=== PATIENT | female | born 1965 | race Caucasian/White ===

== ENCOUNTER 2019-08-04 00:04 | Inpatient (IN) ==
[2019-08-05] MEDS ORDERED: MORPHINE 4 MG/1 ML VIAL IV PRN (03:09)
[2019-08-05] MEDS ORDERED: ONDANSETRON 4 MG/2 ML VIAL IV PRN (03:09)
[2019-08-05] MEDS ORDERED: NICOTINE 21 MG/24 HR PATCH TRANSDERM PRN (03:09)
[2019-08-05] MEDS ORDERED: hydrALAZINE 20 MG/1 ML VIAL IV PRN (03:22)
[2019-08-05 03:32] LABS: Basophils # 0.1 10*3/uL (0.0-0.2); Basophils % 0.6 % (0.0-0.8); Eosinophils # 0.1 10*3/uL (0.0-0.87); Eosinophils % 1.2 % (0.00-10.9); Hematocrit 45.7 VOL% (35.7-47.0); Immature Granulocytes % 0.2 %; Immature Granulocytes Absolute 0.02 #; Lymphocytes # 2.8 10*3/uL (1.4-4.0); Mean Corpuscular HGB Conc 32.8 GM/DL (32-36); Mean Platelet Volume 9.7 FL (9.6-12.0); Monocytes % 7.6 % (1.7-12.7); Neutrophils % 55.4 % (38.7-73.9); Platelet Count 272 T/CUMM (130-400); Red Blood Count 5.08 MC/CUMM (3.8-5.5); Red Cell Distribution Width 12.6 % (9.3-17.3)
[2019-08-05 03:53] LABS: Alanine Aminotransferase 37 U/L (13-56); Albumin 3.6 G/DL (3.4-5.0); Alkaline Phosphatase 82 U/L (45-117); Aspartate Amino Transferase 20 U/L (0-37); Bilirubin,Total < 0.39 MG/DL (0.2-1.0); Blood Urea Nitrogen 10 MG/DL (7-18); Calcium 8.7 MG/DL (8.5-10.1); Estimated Glom Filtration Rate 67 ML/MIN; Glucose 112 MG/DL (74-106); HDL Cholesterol 31 MG/DL (40-60); Osmolality,Calculated 276.5 MOS/KG (273-304); Risk Ratio 8.23; Total Protein 7.4 G/DL (6.4-8.3); Triglycerides 394 MG/DL (2-150); VLDL CHOLESTEROL 78.8 MG/DL
[2019-08-05] MEDS: ACETAMINOPHEN 325 MG TABLET PO PRN (05:40)
[2019-08-05 06:02] LABS: Apearance,Urine CLEAR (Clear); Bilirubin,Urine Negative (Negative); Blood, Urine Negative (Negative); Glucose,Urine (UA) Negative (Negative); Hyaline Casts,Urine 3 /LPF (0-3); Ketones,Urine Negative (Negative); Mucus,Urine Occasional /LPF (Occasional); Nitrite,Urine Negative (Negative); Protein,Urine Negative; RBC,Urine <1 /HPF (0-4); Squamous Epithelial Cell,Urine Occasional /HPF (0-10); Urine Color Yellow (Yellow); Urine Specific Gravity 1.016 (1.001-1.035); Urine Urobilinogen < 2.0 EU/DL (0.2-1.0); WBC,Urine 2 /HPF (0-6)
[2019-08-05] MEDS ORDERED: ASPIRIN EC 81 MG TABLET PO SCH (09:00)
[2019-08-05] MEDS ORDERED: ASPIRIN 325 MG TABLET PO ONE (09:13)
[2019-08-05] MEDS ORDERED: DIAZEPAM 5 MG TABLET PO ONE (09:13)
[2019-08-05] MEDS ORDERED: MAGNESIUM SULF RIDER 2 GM in PREMIX 1 EACH IV PRN (09:13)
[2019-08-05] MEDS ORDERED: POTASSIUM CHLORIDE RIDER 10 MEQ in PREMIX 1 EACH IV PRN (09:13)
[2019-08-05] MEDS ORDERED: diphenhydrAMINE CAP 25 MG CAPSULE PO ONE (09:13)
[2019-08-05] MEDS ORDERED: LIDOCAINE 1% 20 ML VIAL ONE (09:21)
[2019-08-05] MEDS ORDERED: HEPARIN/NACL 0.9% 2 UNITS/ML 1,000 ML IV ONE (09:21)
[2019-08-05 09:26] LABS: Troponin I 0.253 NG/ML (0.00-0.045)
[2019-08-05] MEDS: SODIUM CHLORIDE 0.9% 1,000 ML IV SCH ×2 (09:29→18:11)
[2019-08-05] MEDS: METOPROLOL TARTRATE 25 MG TABLET PO SCH (09:29)
[2019-08-05] MEDS ORDERED: fentaNYL 100 MCG/2 ML VIAL ONE (09:36)
[2019-08-05] MEDS ORDERED: MIDAZOLAM 2 MG/2 ML VIAL ONE ×2 (09:36→10:13)
[2019-08-05] MEDS ORDERED: ACETAMINOPHEN/CODEINE 300-30 MG TABLET PO PRN (11:07)
[2019-08-05] MEDS: ENOXAPARIN 80 MG/0.8 ML SYRINGE SUBCUT SCH (11:26)
[2019-08-05] MEDS: ATORVASTATIN 40 MG TABLET PO SCH (21:30)
[2019-08-06] MEDS: NITROGLYCERIN SL 0.4 MG TABLET SL PRN ×4 (02:45→04:43)
[2019-08-06] MEDS: ACETAMINOPHEN 325 MG TABLET PO PRN ×2 (04:40→17:19)
[2019-08-06] MEDS ORDERED: NITROGLYCERIN DRIP 50 MG/250 ML BOTTLE IV PRN (04:58)
[2019-08-06 05:02] LABS: Basophils % 0.4 % (0.0-0.8); Eosinophils # 0.1 10*3/uL (0.0-0.87); Eosinophils % 0.7 % (0.00-10.9); Hematocrit 45.1 VOL% (35.7-47.0); Hemoglobin 14.9 GM/DL (12.0-16.0); Immature Granulocytes % 0.2 %; Immature Granulocytes Absolute 0.02 #; Mean Corpuscular Volume 89.3 FL (87-102); Mean Platelet Volume 9.8 FL (9.6-12.0); Monocytes % 8.3 % (1.7-12.7); Neutrophils % 68.4 % (38.7-73.9); Platelet Count 253 T/CUMM (130-400); Red Blood Count 5.05 MC/CUMM (3.8-5.5); Red Cell Distribution Width 12.7 % (9.3-17.3)
[2019-08-06 05:30] LABS: Calcium 9.3 MG/DL (8.5-10.1); Osmolality,Calculated 277.5 MOS/KG (273-304)
[2019-08-06] MEDS: METOPROLOL TARTRATE 25 MG TABLET PO SCH ×2 (08:59→20:30)
[2019-08-06] MEDS: PANTOPRAZOLE 40 MG TABLET PO SCH (08:59)
[2019-08-06] MEDS: ASPIRIN 325 MG TABLET PO SCH (08:59)
[2019-08-06] MEDS ORDERED: CLORAZEPATE 3.75 MG TABLET PO PRN (12:53)
[2019-08-06] MEDS: ENOXAPARIN 80 MG/0.8 ML SYRINGE SUBCUT SCH (14:36)
[2019-08-06] MEDS: ATORVASTATIN 40 MG TABLET PO SCH (20:23)
[2019-08-07] MEDS: ENOXAPARIN 80 MG/0.8 ML SYRINGE SUBCUT SCH (01:51)
[2019-08-07 06:12] LABS: Calcium 8.8 MG/DL (8.5-10.1); Osmolality,Calculated 274.7 MOS/KG (273-304)
[2019-08-07] MEDS ORDERED: GLUCAGON 1 MG VIAL IM PRN (09:07)
[2019-08-07] MEDS ORDERED: DEXTROSE 10% 250 ML BAG IV PRN (09:17)
[2019-08-07] MEDS: ASPIRIN 325 MG TABLET PO SCH (09:19)
[2019-08-07] MEDS: METOPROLOL TARTRATE 25 MG TABLET PO SCH ×2 (09:19→20:57)
[2019-08-07] MEDS: PANTOPRAZOLE 40 MG TABLET PO SCH (09:19)
[2019-08-07 10:33] LABS: ABG Base Excess 0.2 MMOL/L (-2.5-2.5); ABG HCO3 24.6 MMOL/L (20-26); ABG Oxygen Saturation 96.5 % (95-100); ABG PCO2 39.3 MM HG (35-48); ABG PH 7.407 (7.35-7.45); ABG PO2 85.2 MM HG (80-95); Allen Test Positive; Pt O2 Delivery Device Room Air
[2019-08-07] MEDS: CHLORHEXIDINE 4% SOLN 118 ML BOTTLE TOP SCH ×2 (17:44→21:31)
[2019-08-07] MEDS: ATORVASTATIN 40 MG TABLET PO SCH (20:57)
[2019-08-07] MEDS: CHLORHEXIDINE 0.12% ORAL RINSE 60 ML BOTTLE SWISH/SPIT SCH (21:50)
[2019-08-08] MEDS ORDERED: VANCOMYCIN 1,000 MG VIAL ONE ×2 (04:23→09:47)
[2019-08-08] MEDS ORDERED: VANCOMYCIN 500 MG VIAL ONE (04:23)
[2019-08-08] MEDS ORDERED: PAPAVERINE 60 MG/2 ML VIAL ONE (04:23)
[2019-08-08 04:30] LABS: Basophils % 0.5 % (0.0-0.8); Eosinophils # 0.2 10*3/uL (0.0-0.87); Hematocrit 46.1 VOL% (35.7-47.0); Hemoglobin 15.2 GM/DL (12.0-16.0); Immature Granulocytes % 0.3 %; Immature Granulocytes Absolute 0.02 #; Lymphocytes # 2.3 10*3/uL (1.4-4.0); Lymphocytes % 29.7 % (21.3-54.2); Mean Corpuscular Volume 89.5 FL (87-102); Mean Platelet Volume 9.9 FL (9.6-12.0); Neutrophils % 57.5 % (38.7-73.9); Platelet Count 249 T/CUMM (130-400); Red Blood Count 5.15 MC/CUMM (3.8-5.5); Red Cell Distribution Width 12.4 % (9.3-17.3); White Blood Count 7.8 T/CUMM (4-12)
[2019-08-08 04:39] LABS: INR 0.9; Partial Thromboplastin Time 25.2 SECS (20.8-36.0)
[2019-08-08 05:03] LABS: Calcium 9.4 MG/DL (8.5-10.1); Osmolality,Calculated 274.8 MOS/KG (273-304)
[2019-08-08] MEDS: CHLORHEXIDINE 4% SOLN 118 ML BOTTLE TOP SCH ×2 (05:19→15:30)
[2019-08-08] MEDS: PANTOPRAZOLE 40 MG TABLET PO SCH ×2 (05:36→15:31)
[2019-08-08] MEDS ORDERED: LORazepam 1 MG TABLET PO ONE (06:00)
[2019-08-08] MEDS ORDERED: MIDAZOLAM 10 MG/2 ML VIAL ONE ×2 (06:00)
[2019-08-08] MEDS ORDERED: CEFUROXIME INJ 1,500 MG in SYRINGE 1 EACH IV ONE (06:00)
[2019-08-08] MEDS ORDERED: ACETAMINOPHEN 500 MG TABLET PO ONE (06:00)
[2019-08-08] MEDS ORDERED: SUFentanil 250 MCG/5 ML AMP ONE (06:00)
[2019-08-08 07:49] LABS: ABG Base Excess 0.4 MMOL/L (-2.5-2.5); ABG HCO3 24.8 MMOL/L (20-26); ABG Oxygen Saturation 99.8 % (95-100); ABG PCO2 37.8 MM HG (35-48); ABG PH 7.421 (7.35-7.45); ABG TCO2 21.3 MMOL/L (23-27); Glucose Heart Surgery 122 MG/DL (74-106); Hematocrit Heart Surgery 41.4 PERCENT (37-47); Hemoglobin Heart Surgery 13.5 G/DL (12.0-16.0); Ionized Calcium Arterial 1.17 MMOL/L (1.21-1.46); PCO2 Patient Temp Arterial 37.8 MMHG; PH Patient Temp Arterial 7.421; Patient Temperature 37 CELCIUS; Sodium Heart/CVR 138 MMOL/L (135-145)
[2019-08-08] MEDS ORDERED: PHENYLEPHRINE DRIP 40 MG/250 ML PREMIX IV ONE (07:56)
[2019-08-08 08:24] LABS: Amorphous Crystals,Urine Few /HPF (Few); Apearance,Urine CLOUDY (Clear); Bilirubin,Urine Negative (Negative); Blood, Urine Negative (Negative); Glucose,Urine (UA) Negative (Negative); Ketones,Urine Negative (Negative); Mucus,Urine Many /LPF (Occasional); Nitrite,Urine Negative (Negative); Protein,Urine Negative; Urine Color Yellow (Yellow); Urine Specific Gravity 1.028 (1.001-1.035); Urine Urobilinogen < 2.0 EU/DL (0.2-1.0)
[2019-08-08 09:34] LABS: Hematocrit Heart Surgery 27.6 PERCENT (37-47); Hemoglobin Heart Surgery 8.9 G/DL (12.0-16.0); PCO2 Patient Temp Venous 32.2 MM HG; PH Patient Temp Venous 7.495; PO2 Patient Temp Venous 34.7 MM HG; Potassium Heart/CVR 5.2 MMOL/L (3.5-5.1); VBG HCO3 25.9 MEQ/L (24-28); VBG Oxygen Saturation 82.3 %; VBG PCO2 37.2 MMHG (41-51); VBG PH 7.45; VBG PO2 42.8 MMHG (17-40)
[2019-08-08] MEDS ORDERED: AMINOCAPROIC ACID 5,000 MG/20 ML VIAL ONE (09:35)
[2019-08-08] MEDS ORDERED: HEPARIN/NACL 0.9% 2 UNITS/ML 500 ML IV ONE (09:35)
[2019-08-08] MEDS ORDERED: PHENYLEPHRINE DRIP 20 MG/250 ML PREMIX IV ONE (09:35)
[2019-08-08] MEDS ORDERED: NITROGLYCERIN DRIP 50 MG/250 ML BOTTLE IV ONE (09:35)
[2019-08-08 10:04] LABS: Hematocrit Heart Surgery 30.9 PERCENT (37-47); PCO2 Patient Temp Venous 32.9 MM HG; PH Patient Temp Venous 7.483; PO2 Patient Temp Venous 36.9 MM HG; Potassium Heart/CVR 5.6 MMOL/L (3.5-5.1); VBG Base Excess 1.7 MEQ/L (0-4); VBG HCO3 25.7 MEQ/L (24-28); VBG Oxygen Saturation 85.6 %; VBG PH 7.424; VBG PO2 48.6 MMHG (17-40)
[2019-08-08 10:35] LABS: Hematocrit Heart Surgery 30.9 PERCENT (37-47); PCO2 Patient Temp Venous 34.8 MM HG; PH Patient Temp Venous 7.447; PO2 Patient Temp Venous 37.1 MM HG; Potassium Heart/CVR 5.5 MMOL/L (3.5-5.1); VBG Base Excess 0.4 MEQ/L (0-4); VBG HCO3 24.6 MEQ/L (24-28); VBG Oxygen Saturation 84.5 %; VBG PCO2 42.2 MMHG (41-51); VBG PH 7.389; VBG PO2 48.8 MMHG (17-40)
[2019-08-08 11:04] LABS: Hematocrit Heart Surgery 30.4 PERCENT (37-47); Hemoglobin Heart Surgery 9.8 G/DL (12.0-16.0); PCO2 Patient Temp Venous 38.5 MM HG; PH Patient Temp Venous 7.428; PO2 Patient Temp Venous 40.8 MM HG; Potassium Heart/CVR 4.9 MMOL/L (3.5-5.1); VBG Base Excess 1.2 MEQ/L (0-4); VBG HCO3 25.2 MEQ/L (24-28); VBG Oxygen Saturation 78.4 %; VBG PCO2 38.5 MMHG (41-51); VBG PH 7.428; VBG PO2 40.8 MMHG (17-40)
[2019-08-08] MEDS ORDERED: THROMBIN TOPICAL (RECOMBINANT) 5,000 UNIT VIAL TOP ONE (11:33)
[2019-08-08 11:56] LABS: ABG Base Excess -1.1 MMOL/L (-2.5-2.5); ABG HCO3 23.5 MMOL/L (20-26); ABG Oxygen Saturation 99.6 % (95-100); ABG PCO2 37.1 MM HG (35-48); ABG PH 7.406 (7.35-7.45); ABG TCO2 21.2 MMOL/L (23-27); Glucose Heart Surgery 193 MG/DL (74-106); Ionized Calcium Arterial 1.17 MMOL/L (1.21-1.46); PCO2 Patient Temp Arterial 37.1 MMHG; PH Patient Temp Arterial 7.406; Patient Temperature 37 CELCIUS; Potassium Heart/CVR 3.5 MMOL/L (3.5-5.1); Sodium Heart/CVR 137 MMOL/L (135-145)
[2019-08-08] MEDS ORDERED: MANNITOL 100 GM/500 ML BAG IV ONE (12:01)
[2019-08-08] MEDS ORDERED: ALBUMIN 25% 25 GM/100 ML VIAL IV ONE (12:02)
[2019-08-08] MEDS ORDERED: DEXTROSE 5% KCL 20 MEQ 20 MEQ/1,000 ML BAG IV ONE (12:02)
[2019-08-08] MEDS ORDERED: FUROSEMIDE 20 MG/2 ML VIAL ONE (12:02)
[2019-08-08] MEDS ORDERED: HEPARIN 10,000 UNIT/10 ML VIAL ONE (12:02)
[2019-08-08] MEDS ORDERED: MAGNESIUM SULFATE 5 GM/10 ML VIAL IV ONE (12:02)
[2019-08-08] MEDS ORDERED: LIDOCAINE 2% 5 ML VIAL ONE (12:02)
[2019-08-08] MEDS ORDERED: SODIUM BICARBONATE 50 MEQ/50 ML VIAL IV ONE (12:02)
[2019-08-08] MEDS ORDERED: methylPREDNISolone SOD SUC 1,000 MG/8 ML VIAL ONE (12:02)
[2019-08-08] MEDS ORDERED: ALBUMIN 5% 12.5 GM/250 ML VIAL IV ONE (12:02)
[2019-08-08] MEDS ORDERED: PROTAMINE SULFATE 250 MG/25 ML VIAL IV ONE (12:02)
[2019-08-08] MEDS ORDERED: PROTAMINE SULFATE 50 MG/5 ML VIAL IV ONE ×2 (12:03→17:25)
[2019-08-08] MEDS ORDERED: LACTATED RINGERS 250 ML IV PRN (12:56)
[2019-08-08] MEDS ORDERED: MIDAZOLAM 10 MG/2 ML VIAL IV PRN (12:56)
[2019-08-08] MEDS ORDERED: NITROPRUSSIDE 100 MG in DEXTROSE 5% 250 ML IV PRN (12:56)
[2019-08-08] MEDS ORDERED: CALCIUM CHLORIDE 1,000 MG/10 ML SYRINGE IV PRN (12:56)
[2019-08-08] MEDS ORDERED: VECURONIUM 10 MG VIAL IV PRN ×2 (12:56)
[2019-08-08] MEDS ORDERED: MORPHINE 10 MG/1 ML VIAL IV PRN (12:56)
[2019-08-08] MEDS ORDERED: ACETAMINOPHEN 650 MG SUPP RECTAL PRN (12:56)
[2019-08-08] MEDS ORDERED: ONDANSETRON 4 MG/2 ML VIAL IV PRN (12:56)
[2019-08-08] MEDS ORDERED: PHENYLEPHRINE DRIP 40 MG/250 ML PREMIX IV PRN (12:56)
[2019-08-08] MEDS ORDERED: CHLORHEXIDINE 4% SOLN 118 ML BOTTLE TOP PRN (12:56)
[2019-08-08] MEDS ORDERED: DEXTROSE 10% 250 ML BAG IV PRN ×2 (12:56)
[2019-08-08] MEDS ORDERED: MAGNESIUM SULF RIDER 2 GM in PREMIX 1 EACH IV PRN (12:56)
[2019-08-08] MEDS ORDERED: INSULIN REGULAR 100 UNIT/ML IV ONE (12:56)
[2019-08-08] MEDS ORDERED: INSULIN REGULAR 100 UNIT/ML IV PRN (12:56)
[2019-08-08] MEDS ORDERED: MAGNESIUM SULF RIDER 4 GM in PREMIX 1 EACH IV PRN (12:56)
[2019-08-08] MEDS ORDERED: INSULIN REGULAR DRIP 100 ML IV SCH (13:00)
[2019-08-08] MEDS ORDERED: SODIUM CHLORIDE 0.45% 1,000 ML IV SCH ×2 (13:00)
[2019-08-08 13:23] LABS: ABG Base Excess -0.2 MMOL/L (-2.5-2.5); ABG HCO3 24.3 MMOL/L (20-26); ABG Oxygen Saturation 98.3 % (95-100); ABG PCO2 46.9 MM HG (35-48); ABG PH 7.347 (7.35-7.45); ABG TCO2 23.8 MMOL/L (23-27); Glucose Heart Surgery 178 MG/DL (74-106); Hematocrit Heart Surgery 27.5 PERCENT (37-47); Hemoglobin Heart Surgery 8.9 G/DL (12.0-16.0); Potassium Heart/CVR 3.6 MMOL/L (3.5-5.1)
[2019-08-08 13:30] LABS: Basophils % 0.2 % (0.0-0.8); Eosinophils # 0.1 10*3/uL (0.0-0.87); Eosinophils % 0.5 % (0.00-10.9); Hematocrit 26.3 VOL% (35.7-47.0); Hemoglobin 8.8 GM/DL (12.0-16.0); Immature Granulocytes % 0.4 %; Immature Granulocytes Absolute 0.04 #; Lymphocytes # 0.9 10*3/uL (1.4-4.0); Lymphocytes % 9.4 % (21.3-54.2); Mean Corpuscular HGB Conc 33.5 GM/DL (32-36); Mean Corpuscular Volume 88.9 FL (87-102); Mean Platelet Volume 10.3 FL (9.6-12.0); Monocytes % 6.5 % (1.7-12.7); Platelet Count 230 T/CUMM (130-400); Red Blood Count 2.96 MC/CUMM (3.8-5.5); Red Cell Distribution Width 12.5 % (9.3-17.3); White Blood Count 9.4 T/CUMM (4-12)
[2019-08-08 13:36] LABS: INR 1.1; PT Patient Result 11.6 SECS (9.6-12.2); Partial Thromboplastin Time 24.3 SECS (20.8-36.0)
[2019-08-08] MEDS: POTASSIUM CHLORIDE RIDER 20 MEQ in PREMIX 1 EACH IV PRN (13:42)
[2019-08-08 13:43] LABS: Albumin 3.2 G/DL (3.4-5.0); Bilirubin,Total 0.7 MG/DL (0.2-1.0); Calcium 7.9 MG/DL (8.5-10.1); Osmolality,Calculated 287.1 MOS/KG (273-304); Total Protein 6.1 G/DL (6.4-8.3)
[2019-08-08 13:44] LABS: CKMB % 7.4 %
[2019-08-08 13:46] LABS: Troponin I 3.31 NG/ML (0.00-0.045)
[2019-08-08] MEDS: LACTATED RINGERS 1,000 ML IV PRN ×2 (14:00→15:30)
[2019-08-08] MEDS: POTASSIUM CHLORIDE RIDER 10 MEQ in PREMIX 1 EACH IV PRN (14:15)
[2019-08-08] MEDS: MIDAZOLAM 2 MG/2 ML VIAL IV PRN ×2 (14:40→16:15)
[2019-08-08 15:05] LABS: ABG Base Excess -0.7 MMOL/L (-2.5-2.5); ABG HCO3 23.8 MMOL/L (20-26); ABG Oxygen Saturation 98.3 % (95-100); ABG PH 7.303 (7.35-7.45); ABG TCO2 24.2 MMOL/L (23-27); Glucose Heart Surgery 178 MG/DL (74-106); Hematocrit Heart Surgery 29.7 PERCENT (37-47); Hemoglobin Heart Surgery 9.6 G/DL (12.0-16.0); Potassium Heart/CVR 4.6 MMOL/L (3.5-5.1)
[2019-08-08] MEDS: ASPIRIN 325 MG TABLET PO SCH (15:30)
[2019-08-08] MEDS: METOPROLOL TARTRATE 25 MG TABLET PO SCH (15:30)
[2019-08-08] MEDS: CHLORHEXIDINE 0.12% ORAL RINSE 60 ML BOTTLE SWISH/SPIT SCH ×2 (15:30→22:19)
[2019-08-08 16:11] LABS: ABG Base Excess 0.2 MMOL/L (-2.5-2.5); ABG HCO3 24.7 MMOL/L (20-26); ABG PCO2 41.9 MM HG (35-48); ABG PH 7.389 (7.35-7.45); ABG TCO2 22.7 MMOL/L (23-27); Glucose Heart Surgery 178 MG/DL (74-106); Hematocrit Heart Surgery 34.5 PERCENT (37-47); Hemoglobin Heart Surgery 11.2 G/DL (12.0-16.0); Potassium Heart/CVR 4.4 MMOL/L (3.5-5.1)
[2019-08-08] MEDS: ALBUMIN 5% 12.5 GM in PREMIX 1 EACH IV PRN ×3 (16:23→22:19)
[2019-08-08] MEDS ORDERED: SODIUM CHLORIDE 0.9% 1,000 ML IV PRN (16:43)
[2019-08-08] MEDS ORDERED: METOPROLOL TARTRATE 25 MG TABLET PO ONE (16:45)
[2019-08-08] MEDS ORDERED: MIDAZOLAM 2 MG/2 ML VIAL IV ONE (16:57)
[2019-08-08 17:45] LABS: ABG Base Excess -0.9 MMOL/L (-2.5-2.5); ABG HCO3 23.6 MMOL/L (20-26); ABG Oxygen Saturation 98.7 % (95-100); ABG PH 7.385 (7.35-7.45); ABG TCO2 21.9 MMOL/L (23-27); Glucose Heart Surgery 159 MG/DL (74-106); Hematocrit Heart Surgery 30.2 PERCENT (37-47); Hemoglobin Heart Surgery 9.7 G/DL (12.0-16.0)
[2019-08-08] MEDS: SODIUM CHLORIDE 0.9% 1,000 ML IV SCH (19:15)
[2019-08-08] MEDS ORDERED: FUROSEMIDE 40 MG/4 ML VIAL IV ONE (21:07)
[2019-08-08 21:08] LABS: ABG Base Excess -1.6 MMOL/L (-2.5-2.5); ABG HCO3 23.3 MMOL/L (20-26); ABG PH 7.383 (7.35-7.45); ABG PO2 86.6 MM HG (80-95); ABG TCO2 24.5 MMOL/L (23-27); Glucose Heart Surgery 143 MG/DL (74-106); Hemoglobin Heart Surgery 11.1 G/DL (12.0-16.0); Potassium Heart/CVR 4.1 MMOL/L (3.5-5.1)
[2019-08-08 22:03] LABS: ABG Base Excess 1.1 MMOL/L (-2.5-2.5); ABG HCO3 25.3 MMOL/L (20-26); ABG Oxygen Saturation 96.8 % (95-100); ABG PCO2 41.2 MM HG (35-48); ABG PH 7.406 (7.35-7.45); ABG PO2 86.9 MM HG (80-95); ABG TCO2 22.8 MMOL/L (23-27); Glucose Heart Surgery 163 MG/DL (74-106); Hematocrit Heart Surgery 37.7 PERCENT (37-47); Hemoglobin Heart Surgery 12.2 G/DL (12.0-16.0)
[2019-08-08] MEDS: CEFUROXIME INJ 1,500 MG in SYRINGE 1 EACH IV SCH (22:22)
[2019-08-08 22:52] LABS: CKMB % 5.6 %
[2019-08-08 22:53] LABS: Troponin I 3.6 NG/ML (0.00-0.045)
[2019-08-09 00:31] LABS: ABG Base Excess 0.5 MMOL/L (-2.5-2.5); ABG HCO3 24.8 MMOL/L (20-26); ABG Oxygen Saturation 94.7 % (95-100); ABG PCO2 38.7 MM HG (35-48); ABG PH 7.425 (7.35-7.45); ABG PO2 73.9 MM HG (80-95); Glucose Heart Surgery 137 MG/DL (74-106); Hemoglobin Heart Surgery 10.8 G/DL (12.0-16.0); Potassium Heart/CVR 3.7 MMOL/L (3.5-5.1)
[2019-08-09] MEDS: LEVALBUTEROL 1.25 MG/3 ML NEB RESP TX SCH ×6 (01:39→20:05)
[2019-08-09 02:00] LABS: ABG Base Excess 1.2 MMOL/L (-2.5-2.5); ABG HCO3 25.5 MMOL/L (20-26); ABG Oxygen Saturation 97.6 % (95-100); ABG PCO2 37.9 MM HG (35-48); ABG PH 7.433 (7.35-7.45); ABG TCO2 22.9 MMOL/L (23-27); Glucose Heart Surgery 149 MG/DL (74-106); Hematocrit Heart Surgery 32.4 PERCENT (37-47); Hemoglobin Heart Surgery 10.5 G/DL (12.0-16.0); Potassium Heart/CVR 3.7 MMOL/L (3.5-5.1)
[2019-08-09] MEDS: ALBUMIN 5% 12.5 GM in PREMIX 1 EACH IV PRN (02:19)
[2019-08-09] MEDS ORDERED: FUROSEMIDE 40 MG/4 ML VIAL IV ONE (02:43)
[2019-08-09] MEDS: MORPHINE 4 MG/1 ML VIAL IV PRN ×2 (02:43→05:02)
[2019-08-09 04:03] LABS: ABG Base Excess 1.2 MMOL/L (-2.5-2.5); ABG HCO3 25.4 MMOL/L (20-26); ABG Oxygen Saturation 96.9 % (95-100); ABG PCO2 38.7 MM HG (35-48); ABG PH 7.435 (7.35-7.45); ABG PO2 94.7 MM HG (80-95); ABG TCO2 26.6 MMOL/L (23-27); Glucose Heart Surgery 147 MG/DL (74-106); Potassium Heart/CVR 3.6 MMOL/L (3.5-5.1)
[2019-08-09] MEDS: POTASSIUM CHLORIDE RIDER 20 MEQ in PREMIX 1 EACH IV PRN ×2 (04:11→06:33)
[2019-08-09 04:40] LABS: CKMB % 5.4 %
[2019-08-09 04:44] LABS: Hematocrit 31.1 VOL% (35.7-47.0); Immature Granulocytes % 0.3 %; Immature Granulocytes Absolute 0.02 #; Lymphocytes # 0.5 10*3/uL (1.4-4.0); Lymphocytes % 6.6 % (21.3-54.2); Mean Corpuscular HGB Conc 34.1 GM/DL (32-36); Mean Corpuscular Volume 90.1 FL (87-102); Mean Platelet Volume 10.8 FL (9.6-12.0); Monocytes % 6.4 % (1.7-12.7); Neutrophils % 86.7 % (38.7-73.9); Platelet Count 192 T/CUMM (130-400); Red Blood Count 3.45 MC/CUMM (3.8-5.5); Red Cell Distribution Width 13.5 % (9.3-17.3); White Blood Count 7.8 T/CUMM (4-12)
[2019-08-09] MEDS: POTASSIUM CHLORIDE RIDER 10 MEQ in PREMIX 1 EACH IV PRN (04:46)
[2019-08-09 04:47] LABS: Hemoglobin 10.6 GM/DL (12.0-16.0)
[2019-08-09 04:54] LABS: Troponin I 6.54 NG/ML (0.00-0.045)
[2019-08-09 05:03] LABS: Albumin 4.3 G/DL (3.4-5.0); Bilirubin,Direct 0.23 MG/DL (0.0-0.20); Bilirubin,Total 0.9 MG/DL (0.2-1.0); Calcium 8.1 MG/DL (8.5-10.1); Osmolality,Calculated 288.8 MOS/KG (273-304); Total Protein 7.1 G/DL (6.4-8.3)
[2019-08-09 05:29] LABS: ABG Base Excess 1.7 MMOL/L (-2.5-2.5); ABG HCO3 25.9 MMOL/L (20-26); ABG Oxygen Saturation 97.4 % (95-100); ABG PH 7.416 (7.35-7.45); ABG PO2 89.9 MM HG (80-95); ABG TCO2 23.7 MMOL/L (23-27); Glucose Heart Surgery 161 MG/DL (74-106); Hematocrit Heart Surgery 32.7 PERCENT (37-47); Hemoglobin Heart Surgery 10.6 G/DL (12.0-16.0)
[2019-08-09 06:28] LABS: ABG Base Excess 1.7 MMOL/L (-2.5-2.5); ABG HCO3 25.8 MMOL/L (20-26); ABG Oxygen Saturation 95.5 % (95-100); ABG PCO2 39.4 MM HG (35-48); ABG PH 7.427 (7.35-7.45); ABG PO2 73.1 MM HG (80-95); ABG TCO2 23.5 MMOL/L (23-27); Glucose Heart Surgery 156 MG/DL (74-106); Hematocrit Heart Surgery 32.3 PERCENT (37-47); Hemoglobin Heart Surgery 10.5 G/DL (12.0-16.0); Potassium Heart/CVR 3.7 MMOL/L (3.5-5.1)
[2019-08-09] MEDS ORDERED: KETOROLAC 30 MG/1 ML VIAL IV PRN (08:18)
[2019-08-09] MEDS ORDERED: NICOTINE 21 MG/24 HR PATCH TRANSDERM PRN (09:08)
[2019-08-09] MEDS ORDERED: CLORAZEPATE 3.75 MG TABLET PO PRN (09:08)
[2019-08-09] MEDS ORDERED: MAGNESIUM SULF RIDER 2 GM in PREMIX 1 EACH IV PRN (09:48)
[2019-08-09] MEDS ORDERED: ZALEPLON 5 MG CAPSULE PO PRN (09:48)
[2019-08-09] MEDS ORDERED: SODIUM CHLOR 0.45% KCL 20 MEQ 20 MEQ/1,000 ML BAG IV SCH (09:48)
[2019-08-09] MEDS ORDERED: DEXTROSE 10% 250 ML BAG IV PRN (09:48)
[2019-08-09] MEDS ORDERED: DEXTROSE 50% 25 GM/50 ML VIAL IV PRN (09:48)
[2019-08-09] MEDS ORDERED: ALUMINUM/MAGNES/SIMETH MAX STR 30 ML UDCUP PO PRN (09:48)
[2019-08-09] MEDS ORDERED: MAGNESIUM HYDROXIDE SUSP 30 ML UDCUP PO PRN (09:48)
[2019-08-09] MEDS ORDERED: ONDANSETRON 4 MG/2 ML VIAL IV PRN (09:48)
[2019-08-09] MEDS ORDERED: MAGNESIUM SULF RIDER 4 GM in PREMIX 1 EACH IV PRN (09:48)
[2019-08-09] MEDS ORDERED: GLUCAGON 1 MG VIAL IM PRN ×2 (09:48)
[2019-08-09 10:07] LABS: ABG Base Excess 2.3 MMOL/L (-2.5-2.5); ABG HCO3 26.4 MMOL/L (20-26); ABG Oxygen Saturation 94.9 % (95-100); ABG PH 7.425 (7.35-7.45); ABG PO2 72.1 MM HG (80-95); ABG TCO2 24.3 MMOL/L (23-27); Glucose Heart Surgery 151 MG/DL (74-106); Hematocrit Heart Surgery 31.9 PERCENT (37-47); Hemoglobin Heart Surgery 10.3 G/DL (12.0-16.0)
[2019-08-09] MEDS: CHLORHEXIDINE 0.12% ORAL RINSE 60 ML BOTTLE SWISH/SPIT SCH ×2 (10:24→21:37)
[2019-08-09] MEDS: CEFUROXIME INJ 1,500 MG in SYRINGE 1 EACH IV SCH ×2 (10:32→21:37)
[2019-08-09] MEDS: ASCORBIC ACID 500 MG TABLET PO SCH ×2 (10:32→21:33)
[2019-08-09] MEDS: KETOROLAC 30 MG/1 ML VIAL IV SCH ×2 (10:33→16:44)
[2019-08-09] MEDS: oxyCODONE/ACETAMINOPHEN 5-325 MG TABLET PO PRN ×2 (12:49→21:33)
[2019-08-09] MEDS: ATORVASTATIN 40 MG TABLET PO SCH (21:33)
[2019-08-09] MEDS: METOPROLOL TARTRATE 25 MG TABLET PO SCH (21:35)
[2019-08-10] MEDS: KETOROLAC 30 MG/1 ML VIAL IV SCH ×5 (00:07→21:26)
[2019-08-10] MEDS: LEVALBUTEROL 1.25 MG/3 ML NEB RESP TX SCH ×6 (01:21→19:00)
[2019-08-10 05:23] LABS: Basophils % 0.1 % (0.0-0.8); Hematocrit 29.7 VOL% (35.7-47.0); Hemoglobin 9.8 GM/DL (12.0-16.0); Immature Granulocytes % 1.1 %; Immature Granulocytes Absolute 0.12 #; Lymphocytes # 1.5 10*3/uL (1.4-4.0); Lymphocytes % 13.4 % (21.3-54.2); Mean Corpuscular Volume 93.4 FL (87-102); Mean Platelet Volume 11.1 FL (9.6-12.0); Monocytes % 8.1 % (1.7-12.7); Neutrophils % 77.3 % (38.7-73.9); Platelet Count 162 T/CUMM (130-400); Red Blood Count 3.18 MC/CUMM (3.8-5.5); Red Cell Distribution Width 14.4 % (9.3-17.3); White Blood Count 11.4 T/CUMM (4-12)
[2019-08-10] MEDS ORDERED: FUROSEMIDE 40 MG/4 ML VIAL IV ONE (06:00)
[2019-08-10 06:03] LABS: Albumin 3.6 G/DL (3.4-5.0); Bilirubin,Direct 0.15 MG/DL (0.0-0.20); Bilirubin,Indirect 0.6 MG/DL (0.0-1.0); Bilirubin,Total 0.7 MG/DL (0.2-1.0); CKMB % 1.7 %; Calcium 8.6 MG/DL (8.5-10.1); Total Protein 6.8 G/DL (6.4-8.3)
[2019-08-10 06:07] LABS: Troponin I 4.3 NG/ML (0.00-0.045)
[2019-08-10] MEDS: METOPROLOL TARTRATE 25 MG TABLET PO SCH ×2 (10:15→23:25)
[2019-08-10] MEDS: DOCUSATE SODIUM 100 MG CAPSULE PO SCH (10:15)
[2019-08-10] MEDS: POTASSIUM CHLORIDE 20 MEQ TABLET PO PRN ×2 (10:15→12:02)
[2019-08-10] MEDS: ASPIRIN EC 81 MG TABLET PO SCH (10:15)
[2019-08-10] MEDS: PANTOPRAZOLE 40 MG TABLET PO SCH (10:16)
[2019-08-10] MEDS: ASCORBIC ACID 500 MG TABLET PO SCH ×2 (10:16→21:26)
[2019-08-10] MEDS: FERROUS SULFATE 325 MG TABLET PO SCH (10:17)
[2019-08-10] MEDS: CHLORHEXIDINE 0.12% ORAL RINSE 60 ML BOTTLE SWISH/SPIT SCH ×2 (10:17→23:25)
[2019-08-10] MEDS: oxyCODONE/ACETAMINOPHEN 5-325 MG TABLET PO PRN (12:02)
[2019-08-10] MEDS: ATORVASTATIN 40 MG TABLET PO SCH (21:26)
[2019-08-11] MEDS: LEVALBUTEROL 1.25 MG/3 ML NEB RESP TX SCH ×7 (00:45→23:44)
[2019-08-11] MEDS: KETOROLAC 30 MG/1 ML VIAL IV SCH ×4 (04:23→21:45)
[2019-08-11 05:13] LABS: Basophils % 0.3 % (0.0-0.8); Eosinophils # 0.1 10*3/uL (0.0-0.87); Eosinophils % 0.5 % (0.00-10.9); Hematocrit 29.9 VOL% (35.7-47.0); Hemoglobin 9.5 GM/DL (12.0-16.0); Immature Granulocytes % 0.9 %; Immature Granulocytes Absolute 0.09 #; Lymphocytes # 2.2 10*3/uL (1.4-4.0); Lymphocytes % 22.1 % (21.3-54.2); Mean Corpuscular HGB Conc 31.8 GM/DL (32-36); Mean Corpuscular Volume 95.8 FL (87-102); Mean Platelet Volume 11.1 FL (9.6-12.0); Monocytes % 8.5 % (1.7-12.7); NRBC # 0.02 10*3/uL; Neutrophils % 67.7 % (38.7-73.9); Platelet Count 161 T/CUMM (130-400); Red Blood Count 3.12 MC/CUMM (3.8-5.5); Red Cell Distribution Width 14.6 % (9.3-17.3); White Blood Count 9.8 T/CUMM (4-12)
[2019-08-11 05:53] LABS: Alanine Aminotransferase 63 U/L (13-56); Albumin 3.5 G/DL (3.4-5.0); Alkaline Phosphatase 55 U/L (45-117); Aspartate Amino Transferase 50 U/L (0-37); Bilirubin,Indirect 1.3 MG/DL (0.0-1.0); Blood Urea Nitrogen 24 MG/DL (7-18); Calcium 8.6 MG/DL (8.5-10.1); Estimated Glom Filtration Rate 78 ML/MIN; Glucose 114 MG/DL (74-106); Osmolality,Calculated 290.8 MOS/KG (273-304); Total Protein 6.7 G/DL (6.4-8.3)
[2019-08-11] MEDS: BISOPROLOL 5 MG TABLET PO SCH (09:31)
[2019-08-11] MEDS: DOCUSATE SODIUM 100 MG CAPSULE PO SCH (09:32)
[2019-08-11] MEDS: ASCORBIC ACID 500 MG TABLET PO SCH ×2 (09:33→21:41)
[2019-08-11] MEDS: PANTOPRAZOLE 40 MG TABLET PO SCH (09:34)
[2019-08-11] MEDS: ASPIRIN EC 81 MG TABLET PO SCH (09:34)
[2019-08-11] MEDS: FERROUS SULFATE 325 MG TABLET PO SCH (09:34)
[2019-08-11] MEDS: CHLORHEXIDINE 0.12% ORAL RINSE 60 ML BOTTLE SWISH/SPIT SCH ×2 (09:35→21:42)
[2019-08-11] MEDS: ACETAMINOPHEN 325 MG TABLET PO PRN (15:37)
[2019-08-11] MEDS: ATORVASTATIN 40 MG TABLET PO SCH (21:41)
[2019-08-12] MEDS: LEVALBUTEROL 1.25 MG/3 ML NEB RESP TX SCH ×6 (03:04→22:50)
[2019-08-12] MEDS: KETOROLAC 30 MG/1 ML VIAL IV SCH (04:49)
[2019-08-12 06:02] LABS: Basophils % 0.3 % (0.0-0.8); Eosinophils # 0.1 10*3/uL (0.0-0.87); Eosinophils % 1.6 % (0.00-10.9); Hematocrit 41.4 VOL% (35.7-47.0); Hemoglobin 13.4 GM/DL (12.0-16.0); Immature Granulocytes % 0.7 %; Immature Granulocytes Absolute 0.04 #; Lymphocytes # 1.1 10*3/uL (1.4-4.0); Lymphocytes % 18.7 % (21.3-54.2); Mean Corpuscular HGB Conc 32.4 GM/DL (32-36); Mean Corpuscular Volume 92.6 FL (87-102); Mean Platelet Volume 11.5 FL (9.6-12.0); Monocytes % 8.8 % (1.7-12.7); NRBC # 0.02 10*3/uL; Neutrophils % 69.9 % (38.7-73.9); Platelet Count 140 T/CUMM (130-400); Red Blood Count 4.47 MC/CUMM (3.8-5.5); Red Cell Distribution Width 14.4 % (9.3-17.3); White Blood Count 5.8 T/CUMM (4-12)
[2019-08-12 06:03] LABS: Calcium 8.7 MG/DL (8.5-10.1); Osmolality,Calculated 286.1 MOS/KG (273-304)
[2019-08-12] MEDS: DOCUSATE SODIUM 100 MG CAPSULE PO SCH (09:17)
[2019-08-12] MEDS: BISOPROLOL 5 MG TABLET PO SCH (09:25)
[2019-08-12] MEDS: FERROUS SULFATE 325 MG TABLET PO SCH (09:25)
[2019-08-12] MEDS: ASCORBIC ACID 500 MG TABLET PO SCH ×2 (09:25→21:35)
[2019-08-12] MEDS: PANTOPRAZOLE 40 MG TABLET PO SCH (09:25)
[2019-08-12] MEDS: ASPIRIN EC 81 MG TABLET PO SCH (09:25)
[2019-08-12] MEDS: CHLORHEXIDINE 0.12% ORAL RINSE 60 ML BOTTLE SWISH/SPIT SCH ×2 (09:26→21:36)
[2019-08-12] MEDS: ACETAMINOPHEN 325 MG TABLET PO PRN ×2 (12:04→16:06)
[2019-08-12] MEDS: IBUPROFEN 200 MG TABLET PO PRN ×2 (16:06→20:45)
[2019-08-12] MEDS: IBUPROFEN 400 MG TABLET PO PRN (20:45)
[2019-08-12] MEDS: ATORVASTATIN 40 MG TABLET PO SCH (21:35)
[2019-08-13] MEDS: IBUPROFEN 400 MG TABLET PO PRN ×2 (00:49→04:30)
[2019-08-13] MEDS: ACETAMINOPHEN 325 MG TABLET PO PRN ×3 (00:49→09:48)
[2019-08-13] MEDS: LEVALBUTEROL 1.25 MG/3 ML NEB RESP TX SCH ×3 (03:14→10:51)
[2019-08-13 05:06] LABS: Calcium 8.8 MG/DL (8.5-10.1); Osmolality,Calculated 285.1 MOS/KG (273-304)
[2019-08-13 05:15] LABS: Basophils % 0.3 % (0.0-0.8); Eosinophils # 0.2 10*3/uL (0.0-0.87); Eosinophils % 2.2 % (0.00-10.9); Hematocrit 29.5 VOL% (35.7-47.0); Immature Granulocytes % 0.9 %; Immature Granulocytes Absolute 0.08 #; Lymphocytes # 1.8 10*3/uL (1.4-4.0); Lymphocytes % 19.1 % (21.3-54.2); Mean Corpuscular HGB Conc 32.9 GM/DL (32-36); Mean Corpuscular Volume 94.9 FL (87-102); Mean Platelet Volume 10.7 FL (9.6-12.0); Monocytes % 8.6 % (1.7-12.7); Neutrophils % 68.9 % (38.7-73.9)
[2019-08-13 05:15] LABS: Alanine Aminotransferase 71 U/L (13-56); Albumin 3.3 G/DL (3.4-5.0); Alkaline Phosphatase 73 U/L (45-117); Aspartate Amino Transferase 32 U/L (0-37); Bilirubin,Indirect 0.8 MG/DL (0.0-1.0); Blood Urea Nitrogen 21 MG/DL (7-18); Calcium 8.7 MG/DL (8.5-10.1); Estimated Glom Filtration Rate 88 ML/MIN; Glucose 87 MG/DL (74-106); Osmolality,Calculated 282.3 MOS/KG (273-304); Total Protein 6.5 G/DL (6.4-8.3)
[2019-08-13 05:17] LABS: Hemoglobin 9.7 GM/DL (12.0-16.0); Red Blood Count 3.11 MC/CUMM (3.8-5.5); White Blood Count 9.3 T/CUMM (4-12)
[2019-08-13 05:18] LABS: Platelet Count 202 T/CUMM (130-400)
[2019-08-13] MEDS: PANTOPRAZOLE 40 MG TABLET PO SCH (09:49)
[2019-08-13] MEDS: ASCORBIC ACID 500 MG TABLET PO SCH (09:50)
[2019-08-13] MEDS: FERROUS SULFATE 325 MG TABLET PO SCH (09:50)
[2019-08-13] MEDS: ASPIRIN EC 81 MG TABLET PO SCH (09:50)
[2019-08-13] MEDS: BISOPROLOL 5 MG TABLET PO SCH (09:51)
[2019-08-13] MEDS: CHLORHEXIDINE 0.12% ORAL RINSE 60 ML BOTTLE SWISH/SPIT SCH (09:52)
[2019-08-13] MEDS: DOCUSATE SODIUM 100 MG CAPSULE PO SCH (09:53)
[2019-08-13] MEDS: IBUPROFEN 200 MG TABLET PO PRN (10:04)
[2019-08-13 20:45] VITALS: BP 109/66
== END 2019-08-13 12:41 | disposition home or self-care (01) | DRG 234 ==
LOC: N.CC → SUATTDRO 08-05 01:49 → N.CVR 08-08 12:24 → N.TELES 08-09 12:28
PROVIDERS: ADMIT Emergency Medicine